=== PATIENT | female | born 1965 | race African-American/Black ===

== ENCOUNTER 2019-11-07 14:25 | Inpatient (IN) ==
[2019-11-07] MEDS ORDERED: FUROSEMIDE 100 MG/10 ML VIAL IV STA (14:42)
[2019-11-07 15:26] LABS: ABG Base Excess 5.2 MMOL/L (-2.5-2.5); ABG HCO3 29.1 MMOL/L (20-26); ABG Oxygen Saturation 94.7 % (95-100); ABG PCO2 53.5 MM HG (35-48); ABG PH 7.378 (7.35-7.45); ABG PO2 77.5 MM HG (80-95); ABG TCO2 28.7 MMOL/L (23-27)
[2019-11-07 15:34] LABS: Basophils # 0.1 10*3/uL (0.0-0.2); Basophils % 0.9 % (0.0-0.8); Eosinophils # 0.1 10*3/uL (0.0-0.87); Hematocrit 32.2 VOL% (35.7-47.0); Hemoglobin 9.8 GM/DL (12.0-16.0); Immature Granulocytes % 0.9 %; Immature Granulocytes Absolute 0.06 #; Lymphocytes % 14.8 % (21.3-54.2); Mean Corpuscular HGB Conc 30.4 GM/DL (32-36); Mean Corpuscular Volume 83.4 FL (87-102); Mean Platelet Volume 9.9 FL (9.6-12.0); Monocytes % 9.9 % (1.7-12.7); Neutrophils % 72.5 % (38.7-73.9); Platelet Count 199 T/CUMM (130-400); Red Blood Count 3.86 MC/CUMM (3.8-5.5); Red Cell Distribution Width 16.7 % (9.3-17.3); White Blood Count 6.8 T/CUMM (4-12)
[2019-11-07 15:44] LABS: INR 1.2; PT Patient Result 12.5 SECS (9.6-12.2); Partial Thromboplastin Time 25.4 SECS (20.8-36.0)
[2019-11-07 15:54] LABS: Albumin 3.2 G/DL (3.4-5.0); Bilirubin,Total 0.9 MG/DL (0.2-1.0); Calcium 8.7 MG/DL (8.5-10.1); Osmolality,Calculated 283.1 MOS/KG (273-304); Total Protein 7.7 G/DL (6.4-8.3)
[2019-11-07] MEDS ORDERED: DEXTROSE 50% 25 GM/50 ML VIAL IV PRN (17:34)
[2019-11-07] MEDS ORDERED: GLUCAGON 1 MG VIAL IM PRN (17:34)
[2019-11-07] MEDS ORDERED: ONDANSETRON 4 MG/2 ML VIAL IV PRN (17:34)
[2019-11-07] MEDS: cefTRIAXone 1,000 MG in SYRINGE 1 EACH IV SCH (19:20)
[2019-11-07] MEDS: AZITHROMYCIN INJ 500 MG in SODIUM CHLORIDE 0.9% 250 ML IV SCH (19:40)
[2019-11-07] MEDS ORDERED: METOPROLOL TARTRATE 25 MG TABLET PO STA (19:41)
[2019-11-07] MEDS ORDERED: METOPROLOL TARTRATE 25 MG TABLET ONE (19:44)
[2019-11-07] MEDS ORDERED: DILTIAZEM 50 MG/10 ML VIAL IV ONE ×2 (20:43→20:44)
[2019-11-07] MEDS: INSULIN REGULAR 100 UNIT/ML SUBCUT SCH (23:18)
[2019-11-07] MEDS: METOPROLOL TARTRATE 100 MG TABLET PO SCH (23:50)
[2019-11-07] MEDS: APIXABAN 5 MG TABLET PO SCH (23:50)
[2019-11-07] MEDS: DOCUSATE SODIUM 100 MG CAPSULE PO SCH (23:50)
[2019-11-08 04:43] LABS: Basophils # 0.1 10*3/uL (0.0-0.2); Basophils % 0.8 % (0.0-0.8); Eosinophils # 0.1 10*3/uL (0.0-0.87); Hematocrit 30.8 VOL% (35.7-47.0); Hemoglobin 9.3 GM/DL (12.0-16.0); Immature Granulocytes % 0.8 %; Immature Granulocytes Absolute 0.05 #; Lymphocytes # 1.1 10*3/uL (1.4-4.0); Lymphocytes % 17.6 % (21.3-54.2); Mean Corpuscular HGB Conc 30.2 GM/DL (32-36); Mean Corpuscular Volume 83.9 FL (87-102); Mean Platelet Volume 11.2 FL (9.6-12.0); Monocytes % 10.4 % (1.7-12.7); Neutrophils % 68.4 % (38.7-73.9); Platelet Count 205 T/CUMM (130-400); Red Blood Count 3.67 MC/CUMM (3.8-5.5); Red Cell Distribution Width 16.7 % (9.3-17.3); White Blood Count 6.4 T/CUMM (4-12)
[2019-11-08 05:10] LABS: Calcium 8.5 MG/DL (8.5-10.1); Osmolality,Calculated 274.7 MOS/KG (273-304)
[2019-11-08] MEDS: INSULIN REGULAR 100 UNIT/ML SUBCUT SCH ×4 (07:56→21:23)
[2019-11-08] MEDS: METOPROLOL TARTRATE 100 MG TABLET PO SCH ×2 (09:21→21:23)
[2019-11-08] MEDS: amLODIPine 10 MG TABLET PO SCH (09:21)
[2019-11-08] MEDS: DOCUSATE SODIUM 100 MG CAPSULE PO SCH ×2 (09:21→21:23)
[2019-11-08] MEDS: FUROSEMIDE 40 MG/4 ML VIAL IV SCH ×2 (09:21→17:15)
[2019-11-08] MEDS: APIXABAN 5 MG TABLET PO SCH ×2 (09:21→21:23)
[2019-11-08] MEDS: PANTOPRAZOLE 40 MG TABLET PO SCH (09:21)
[2019-11-08] MEDS ORDERED: SODIUM HYPOCHLORITE 0.25% IRRIG 473 ML BOTTLE TOP SCH (11:30)
[2019-11-08] MEDS: cefTRIAXone 1,000 MG in SYRINGE 1 EACH IV SCH (17:14)
[2019-11-08] MEDS: AZITHROMYCIN INJ 500 MG in SODIUM CHLORIDE 0.9% 250 ML IV SCH (17:15)
[2019-11-08] MEDS: ACETAMINOPHEN 325 MG TABLET PO PRN (18:18)
[2019-11-09] MEDS: ACETAMINOPHEN 325 MG TABLET PO PRN (05:27)
[2019-11-09 06:11] LABS: Basophils % 0.6 % (0.0-0.8); Eosinophils # 0.1 10*3/uL (0.0-0.87); Eosinophils % 2.1 % (0.00-10.9); Hematocrit 31.1 VOL% (35.7-47.0); Hemoglobin 9.3 GM/DL (12.0-16.0); Immature Granulocytes % 0.7 %; Immature Granulocytes Absolute 0.05 #; Lymphocytes # 1.1 10*3/uL (1.4-4.0); Lymphocytes % 16.2 % (21.3-54.2); Mean Corpuscular HGB Conc 29.9 GM/DL (32-36); Mean Corpuscular Volume 84.7 FL (87-102); Mean Platelet Volume 10.1 FL (9.6-12.0); Monocytes % 9.3 % (1.7-12.7); Neutrophils % 71.1 % (38.7-73.9); Platelet Count 207 T/CUMM (130-400); Red Blood Count 3.67 MC/CUMM (3.8-5.5); Red Cell Distribution Width 16.6 % (9.3-17.3); White Blood Count 6.8 T/CUMM (4-12)
[2019-11-09 06:29] LABS: Calcium 8.3 MG/DL (8.5-10.1); Osmolality,Calculated 282.1 MOS/KG (273-304)
[2019-11-09] MEDS: APIXABAN 5 MG TABLET PO SCH (08:28)
[2019-11-09] MEDS: METOPROLOL TARTRATE 100 MG TABLET PO SCH (08:28)
[2019-11-09] MEDS: PANTOPRAZOLE 40 MG TABLET PO SCH (08:28)
[2019-11-09] MEDS: FUROSEMIDE 40 MG/4 ML VIAL IV SCH (08:28)
[2019-11-09] MEDS: amLODIPine 10 MG TABLET PO SCH (08:28)
[2019-11-09] MEDS: DOCUSATE SODIUM 100 MG CAPSULE PO SCH (08:28)
[2019-11-09] MEDS: INSULIN REGULAR 100 UNIT/ML SUBCUT SCH ×2 (08:28→13:03)
[2019-11-09 12:11] VITALS: BP 114/75
[2019-11-09] MEDS ORDERED: AZITHROMYCIN 250 MG TABLET PO SCH (21:00)
== END 2019-11-09 14:27 | disposition home health service (06) | DRG 139 ==
LOC: EDUNIT# → EDBD → N.ED 14:25 → N.EDINP 17:34 → N.TELES 20:25
PROVIDERS: ADMIT Internal Medicine Geriatric Medicine; ATTEND Internal Medicine Geriatric Medicine